=== PATIENT | female | born 1940 | race Caucasian/White ===

== ENCOUNTER → 2017-01-14 | Outpatient (CLI) | payer OTHER ==
[~2017-01-14] MED LIST: ANTIVERT PO; CEFTIN PO; GLUCOPHAGE500 MG PO; LIPITOR PO; LISINOPRIL PO; STAHIST TA1 TAB.SR . PO; SYNTHROID PO; ZITHROMAX PO; ZOCOR PO
--- NOTE | ~2017-01-14 | BD1 ---
[facility] A Service of [facility] RADIOLOGY TEXT RESULTS PATIENT: ALBARO TYSON LOCATION: [facility] : 40 UNIT #: [id number] AGE: [address]: MARIA FERNANDA CELESTIN APRN SEX: F ORDER DR: [id number] [facility] [address] [place], [place] [address] [id number] O MR#: [id number] Acc #: [id number] NAME: ALBARO TYSON : 1940 SEX: F STUDY DATE/TIME: 01/14/2017 10:25 UNIT: [facility] ROOM: STUDY DESCRIPTION: BD Dexa Bone Dens 1+ Site Attending Physician: Maria Fernanda Celestin M.D. Ordering Physician: Maria Fernanda Celestin M.D. Primary Care Physician: Maria Fernanda Celestin M.D. MEDICAL IMAGING REPORT This report is preliminary unless electronic signature is present EXAM Bone density spine/hip 01/14/2017 HISTORY Essential hypertension. Lisinopril. Postmenopausal. TECHNIQUE Bone mineral density scanning performed upper 4 lumbar vertebral segments and left proximal femur in 168-pound 76-year-old female. COMPARISON STUDIES No comparisons. FINDINGS L1-L4 total bone mineral density 1.097 g/cm2 for T-score 0.5 standard deviations above the mean for reference population of normal young individuals and Z-score 3.0 standard deviations above the mean for age-matched population. In the proximal left femur, the total bone mineral density is 0.884 g/cm2 for T-score 0.5 standard deviations above the mean for reference population of normal young individuals and Z-score 1.4 standard deviations above the mean for age-matched population. In left femoral neck specifically, bone mineral density is 0.614 g/cm2 for T-score 2.1 standard deviations below the mean for reference population of normal young individuals and Z-score 0.1 standard deviations above the mean for age-matched population. IMPRESSION 1. 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 The patient is felt to be at increased risk for fracture. Treatment options may be considered. Continued surveillance is recommended. [facility] A Service of [facility] RADIOLOGY TEXT RESULTS PAT[facility]: [id number] [birth year] UNIT #: [id number] AGE: [address]: MARIA FERNANDA CELESTIN APRN SEX: F ORDER DR: Dictated by... Aurelio Dacosta M.D. THIS IS AN ELECTRONICALLY VERIFIED REPORT Aurelio Dacosta M.D. at 01/16/2017 5:52 PM JORDAN/chelo TD: 01/14/2017 22:55 JOB #: [id number] MEDICAL IMAGING REPORT COPY
== END | disposition home or self-care (01) ==
LOC: CWCC 09:59
DX: Z78.0 Asymptomatic menopausal state (principal); I10 Essential (primary) hypertension; E03.9 Hypothyroidism, unspecified; E10.69 Type 1 diabetes mellitus with other specified complication; Z79.84 Long term (current) use of oral hypoglycemic drugs; Z79.899 Other long term (current) drug therapy; M85.88 Other specified disorders of bone density and structure, other site
CPT/HCPCS: 77080

== ENCOUNTER → 2017-05-02 | Outpatient (CLI) | payer OTHER ==
--- NOTE | ~2017-05-02 | MY29 ---
[facility] A Service of [facility] RADIOLOGY TEXT RESULTS PATIENT: ALBARO TYSON LOCATION: [facility] : 40 UNIT #: [id number] AGE: [address]: MARIA FERNANDA CELESTIN APRN SEX: F ORDER DR: [id number] [facility] [address] [place], [place] [address] [id number] O MR#: [id number] Acc #: [id number] NAME: ALBARO TYSON : 1940 SEX: F STUDY DATE/TIME: 05/02/2017 9:56 UNIT: [facility] ROOM: STUDY DESCRIPTION: MY MECHELLE SCREENING W/ CAD BILAT Attending Physician: Maria Fernanda Celestin M.D. Ordering Physician: Maria Fernanda Celestin M.D. Primary Care Physician: Maria Fernanda Celestin M.D. MEDICAL IMAGING REPORT This report is preliminary unless electronic signature is present EXAM Digital screening mammogram 05/02/2017 [facility] HISTORY 77-year-old woman positive family history, sister age 60. Known bilateral nipple inversion. COMPARISON Mammograms now available date 08/05/2013 from [facility]. FINDINGS Digital imaging of each breast was completed utilizing screening protocol. Review includes FDA-approved CAD device. Breast parenchyma is heterogeneous with a small nodular parenchymal pattern noted in each breast. There are scattered calcifications with benign characteristics in each breast. I see no suspicious mass characteristics and no suspicious microcalcifications. There is no architectural deformity. IMPRESSION Benign mammogram. Annual screening recommended. Patient's over the age of 40 are entered into a reminder system with target due date for the next mammogram. A result letter will be sent to the patient. BIRADS: 2 Benign findings. Dictated by... Frederick Partida M.D. THIS IS AN ELECTRONICALLY VERIFIED REPORT Frederick Partida M.D. at 05/07/2017 8:10 AM [facility] A Service of [facility] RADIOLOGY TEXT RESULTS PATIENT: ALBARO TYSON LOCATION: [facility] : 40 UNIT #: [id number] AGE: [address]: MARIA FERNANDA CELESTIN APRN SEX: F ORDER DR: ALVINO/donte TD: 05/06/2017 20:12 JOB #: [id number] MEDICAL IMAGING REPORT Page 1 of 1 COPY
== END | disposition home or self-care (01) ==
LOC: CWCC 09:43
DX: Z12.31 Encounter for screening mammogram for malignant neoplasm of breast (principal); Z80.3 Family history of malignant neoplasm of breast; N64.59 Other signs and symptoms in breast
CPT/HCPCS: G0202